=== PATIENT | male | born 1970 | race African-American/Black ===

== ENCOUNTER 2021-10-13 20:33 | Emergency (ER) | payer OTHER, BC, SELFPAY ==
[2021-10-13] VITALS (26 sets, daily range): BP systolic 136–197; BP diastolic 88–125; PULSE 73–105; RESP 13–20; TEMP 36.1–36.9; O2SAT 94–98
--- NOTE | ~2021-10-13 | XR_ITS ---
EXAMINATION: XR chest 2V DATE: 10/13/2021 21:22 INDICATION: Shortness of breath and hypertension. TECHNIQUE: PA and lateral views of the chest were obtained. COMPARISON: None FINDINGS: The lungs are clear with no focal airspace opacities, pulmonary edema, pleural effusion or pneumothor ax. Mild enlargement of the cardiac silhouette although this may be exaggerated by a left paracardial fat pad. Visualized bones and soft tissues are unremarkable. IMPRESSION: 1. No acute cardiopulmonary disease. 2. Mildly enlarged cardiac silhouette. Reviewed, dictated and finalized at location A. PICKER
--- NOTE | 2021-10-13 20:48 | ECG_ITS ---
Measurements Intervals [place] Rate: 100 P: 40 [place]: 125 QRS: 13 QRSD: 96 T: 31 QT: 326 QTc: 421 Interpretive Statements SINUS TACHYCARDIA RSR' IN V1 OR V2, CONSIDER RIGHT VENTRICULAR HYPERTROPHY OR RIGHT VCD BORDERLINE T WAVE ABNORMALITY- INFERIOR LEADS BORDERLINE ECG Electronically Signed On 10-14-2021 6:24:01 [employer] by Giuseppe Vasquez D.O.
--- NOTE | 2021-10-13 21:41 | ED.GENADULT ---
HPI - General Adult General Chief complaint: Shortness of Breath/Dyspnea Stated complaint: sob Time Seen by Provider: 10/13/21 21:02 Source: patient History of Present Illness HPI narrative: Patient presents with hot flashes. Patient reports he had intermittent issues for the past 6 years he has seen his primary care doctor who is running past 2 up evaluate his symptoms. Tonight he was sitting on the couch approximately 20 months prior to arrival had sudden onset of feeling hot and anxious and needing to move around. Reports when he lays down he feels like he is going to pass out so he needs to get up and move around. Reports cold weather helps his symptoms. These episodes last anywhere from 1 to 2 hours and resolved with cold temperature. He denies past medical history denies any major changes and weight. He reports his symptoms seem to come on randomly is not able to identify any clear triggering events. Sometimes his symptoms are associated with nausea chest pain and shortness of breath. Denies recent fevers, cough, congestion, diarrhea, changes in p.o. intake. Related Data Allergies Allergy/AdvReac Type Severity Reaction Status Date / Time No Known Allergies Allergy Verified 10/13/21 20:57 Review of Systems Review of Systems: CONSTITUTIONAL: Reports feeling hot EYES: Denies visual changes, redness, or discharge. ENT: Denies rhinorrhea, congestion, sore throat, or otalgia. CARDIOVASCULAR: Denies palpitations, or edema. RESPIRATORY: Denies cough or GASTROINTESTINAL: Denies abdominal pain, vomiting, or diarrhea. GENITOURINARY: Denies dysuria or hematuria. SKIN: Denies rash or itching. MUSCULOSKELETAL: Denies back pain, joint pain, or myalgia. NEUROLOGIC: Denies headache, numbness, dizziness, or focal weakness. PSYCHIATRIC: Denies anxiety or depression. All systems reviewed & are unremarkable except as noted in HPI and below PMFSH Past Medical History Medical History (Updated 10/13/21 @ 23:17 by Demarco Portillo MD) Patient denies significant medical history Social History Social History (Updated 10/13/21 @ 21:44 by Demarco Portillo MD) Smoking status: Never smoker Substance use: never Exam Narrative: GENERAL: Well-appearing, well-nourished, and in no acute distress. HEAD: Normocephalic, atraumatic. EYES: PERRLA and EOMI. ENT: Nares clear, no rhinorrhea or epistaxis. Mucous membranes moist. NECK: Supple. No masses. No JVD CHEST: Clear to auscultation. No respiratory distress. No wheezes rales or rhonchi HEART: Regular rate and rhythm. No murmur heard. Normal peripheral pulses. ABDOMEN: Soft, nontender, nondistended, normal active bowel sounds. EXTREMITIES: Normal range of motion. No edema. SKIN: Warm, dry, no rash. NEURO: No focal deficits. Alert and oriented x3. PSYCH: Normal mood and affect. Course Reevaluation(s) Reevaluation #1: Patient is resting comfortably reports large improvement in symptoms. Results and plan reviewed with patient. Patient comfortable outpatient plan. Date: 10/13/21 Time: 23:15 Vital Signs Vital signs: Vital Signs Temperature 36.1 C L 10/13/21 20:35 Pulse Rate 99 10/13/21 20:35 Respiratory Rate 20 10/13/21 20:35 Blood Pressure 178/106 H 10/13/21 20:35 Pulse Oximetry 98 10/13/21 20:35 Temperature 36.9 C 10/13/21 20:50 Pulse Rate 79 10/13/21 23:24 Respiratory Rate 17 10/13/21 23:24 Blood Pressure 140/93 H 10/13/21 23:24 Pulse Oximetry 96 10/13/21 23:24 Medical Decision Making [facility] Narrative Medical decision making narrative: H&P as above, vs with hypertension and mild tachycardia, pt looks clinically well, exam reassuring, labs clinically unremarkable, img clinically unremarkable, additional labs/img considered, symptomatic relief available as needed, on reevaluation pt continues to looks clinically well. Symptoms remain of unclear etiology may represent akathisia reaction however patient had no triggering event versus anxiety reac
[2021-10-13] MEDS: diphenhydrAMINE HCl INJ 50 MG/ML VIAL 25 MG IV PUSH (21:46)
--- NOTE | 2021-10-13 21:46 | PC.NURSE ---
Spoke with Dr Portillo. OK to cancel fluids due to high BP and restlessness at this time.
[2021-10-13 21:49] LABS: Basophils Percent Auto 0.5 % (0.2-1.2); Eosinophils Absolute Auto 0.1 K/mm3 (0-0.3); Eosinophils Percent Auto 0.9 % (0-4.4); Hematocrit 42.7 % (42.0-52.0); Hemoglobin 14.1 g/dL (14.0-18.0); Immature Granulocyte Absolute 0.02 K/mm3 (0.00-0.031); Immature Granulocyte Percent A 0.2 % (0-0.5); Lymphocytes Absolute Auto 2.93 K/mm3 (0.9-3.2); Lymphocytes Percent Auto 36.1 % (18.3-44.2); Mean Corpuscular Hemoglobin 30.5 pg (26-34); Mean Corpuscular Volume 92.4 fl (80-100); Mean Platelet Volume 9.8 fl (7.4-10.4); Monocytes Absolute Auto 0.7 K/mm3 (0.1-0.6); Monocytes Percent Auto 8.1 % (2.6-8.5); Neutrophils Absolute Auto 4.4 K/mm3 (1.3-6.7); Neutrophils Percent Auto 54.2 % (45.5-73.1); Platelet Count Result 329 k/mm3 (150-375); Red Blood Count 4.62 M/mm3 (4.6-6.20); Red Cell Distribution Width 13.5 % (11.5-14.5); White Blood Count 8.1 K/mm3 (4.5-10.0)
[2021-10-13 22:00] LABS: Alanine Aminotransferase 42 U/L (4-50); Albumin Level 4.3 g/dL (3.5-5.1); Alkaline Phosphatase 76 U/L (38-126); Anion Gap 6 mmol/L (8-16); Aspartate Amino Transferase 41 U/L (17-59); Bilirubin,Total 0.6 mg/dL (0.2-1.3); Blood Urea Nitrogen 17 mg/dL (9-20); Calcium 9.4 mg/dL (8.4-10.2); Carbon Dioxide 28 mmol/L (22-30); Chloride 104 mmol/L (98-107); Estimated CRCL calculation 77 ml/min; Estimated Glomerular Filt Rate > 60; Glucose 127 mg/dL (65-110); Magnesium 1.8 mg/dL (1.6-2.3); Potassium 4.3 mmol/L (3.4-5.0); Sodium 138 mmol/L (137-145)
[2021-10-13 22:01] LABS: D Dimer 0.41 ug/mL (<0.48)
[2021-10-13 22:12] LABS: Amphetamine Screen Urine Negative (Negative); Barbiturate Screen Urine Negative (Negative); Benzodiazepines Screen Urine Negative (Negative); Cannabinoid Screen Urine Negative (Negative); Cocaine Screen Urine Negative (Negative); Methadone Screen Urine Negative (Negative); Opiate Screen Urine Positive (Negative); Phencyclidine Screen Urine Negative (Negative)
[2021-10-13 23:10] LABS: Add Urine Microscopic? YES; Appearance Urine Clear (Clear); Bilirubin Urine Negative (Negative); Blood Urine Negative (Negative); Color Urine Yellow (Yellow); Glucose Urine UA Negative (Negative); Ketones Urine Negative (Negative); Leukocyte Esterase Ur Negative LEU/UL (Negative); Mucus Urine Rare /lpf; Nitrate Urine Negative (Negative); Protein Urine 1+ mg/dL (Negative); RBC Urine 0-2 /hpf (0-2); Specific Grav Ur 1.026 (1.001-1.035); Squamous Epithelial Cell Urine Rare /hpf (Few); Urobilinogen Urine Negative mg/dL (<2.0); WBC Urine 0-3 /hpf
== END 2021-10-13 23:24 | disposition home or self-care (01) ==
PROVIDERS: Emergency Provider Emergency Medicine; PCP Emergency Medicine
DX: R23.2 Flushing (principal); R00.2 Palpitations; I10 Essential (primary) hypertension; R00.0 Tachycardia, unspecified; R94.31 Abnormal electrocardiogram [ECG] [EKG]
CPT/HCPCS: 36415; 71046; 80053; 80307; 81001; 83735; 84443; 85025; 85380; 93005; 96374; 99284; J1200

== ENCOUNTER 2021-10-15 02:45 | Emergency (ER) | payer BC, SELFPAY ==
[2021-10-15 02:46] VITALS: BP 161/98; PULSE 89; RESP 18; TEMP 36.1; O2SAT 99
--- NOTE | 2021-10-15 03:09 | ECG_ITS ---
Measurements Intervals [place] Rate: 77 P: 37 MS: 137 QRS: 13 QRSD: 94 T: 36 QT: 365 QTc: 414 Interpretive Statements SINUS RHYTHM RSR' IN V1 OR V2, CONSIDER RIGHT VENTRICULAR HYPERTROPHY OR RIGHT VCD LEFT VENTRICULAR HYPERTROPHY BORDERLINE T WAVE ABNORMALITY- ANTERIOR LEADS BORDERLINE ECG Electronically Signed On 10-15-2021 8:00:57 [employer] by Giuseppe Vasquez D.O.
--- NOTE | 2021-10-15 03:14 | ED.GENADULT ---
HPI - General Adult General Chief complaint: Unspecified Stated complaint: readings of high blood pressure Time Seen by Provider: 10/15/21 02:59 Source: patient History of Present Illness HPI narrative: Patient was seen approximately 24 hours ago for similar symptoms. Reports she was getting ready for bed tonight and felt like his blood pressure was high and he is feeling warm he saw his blood pressure is elevated so he came to the ER for evaluation. Reports some head pressure but denies headache denies any chest pain or shortness of breath denies any nausea vomiting or diarrhea. Reports after his last ER visit he left a message with his primary care doctor but is not heard back. Patient denies any urinary symptoms, lightheadedness, dizziness, focal numbness or weakness. Related Data Home Medications Medication Instructions Recorded Confirmed hydrocodone-acetaminophen 10/15/21 Allergies Allergy/AdvReac Type Severity Reaction Status Date / Time No Known Allergies Allergy Verified 10/15/21 02:51 Review of Systems Review of Systems: CONSTITUTIONAL: Denies fever, chills, or sweats. EYES: Denies visual changes, redness, or discharge. ENT: Denies rhinorrhea, congestion, sore throat, or otalgia. CARDIOVASCULAR: Denies chest pain, palpitations, or edema. RESPIRATORY: Denies cough or dyspnea. GASTROINTESTINAL: Denies abdominal pain, nausea, vomiting, or diarrhea. GENITOURINARY: Denies dysuria or hematuria. SKIN: Denies rash or itching. MUSCULOSKELETAL: Denies back pain, joint pain, or myalgia. NEUROLOGIC: Denies headache, numbness, dizziness, or weakness. PSYCHIATRIC: Denies anxiety or depression. All systems reviewed & are unremarkable except as noted in HPI and below PMFSH Past Medical History Medical History Patient denies significant medical history Social History Social History Smoking status: Never smoker Substance use: never Exam Narrative: GENERAL: Well-appearing, well-nourished, and in no acute distress. HEAD: Normocephalic, atraumatic. EYES: PERRLA and EOMI. ENT: Nares clear, no rhinorrhea or epistaxis. Mucous membranes moist. NECK: Supple. No masses. No JVD CHEST: Clear to auscultation. No respiratory distress. No wheezes rales or rhonchi HEART: Regular rate and rhythm. No murmur heard. Normal peripheral pulses. ABDOMEN: Soft, nontender, nondistended, normal active bowel sounds. EXTREMITIES: Normal range of motion. No edema. SKIN: Warm, dry, no rash. NEURO: No focal deficits. Alert and oriented x3. PSYCH: Normal mood and affect. Course Reevaluation(s) Reevaluation #1: Patient is resting comfortably results and plan reviewed with patient. Patient is comfortable with outpatient plan. Date: 10/15/21 Time: 05:10 Vital Signs Vital signs: Vital Signs Temperature 36.1 C L 10/15/21 02:46 Pulse Rate 89 10/15/21 02:46 Respiratory Rate 18 10/15/21 02:46 Blood Pressure 161/98 H 10/15/21 02:46 Pulse Oximetry 99 10/15/21 02:46 Temperature 36.1 C L 10/15/21 02:46 Pulse Rate 86 10/15/21 05:28 Respiratory Rate 18 10/15/21 05:28 Blood Pressure 143/98 H 10/15/21 05:28 Pulse Oximetry 96 10/15/21 05:28 Medical Decision Making [facility] Narrative Medical decision making narrative: H&P as above, vs hypertension resolved without interventions, pt looks clinically well, exam reassuring, labs without acute process, EKG clinically unremarkable, additional labs/img considered, symptomatic relief available as needed, on reevaluation pt continues to looks clinically well. Symptoms remain of unclear etiology may be anxiety related versus hormonal. Patient did keep blood pressure log and is consistently systolics are greater than 150 for the past 24 hours patient may have undiagnosed essential hypertension, dns ACS, hypertensive emergency. plan to tx/monitor as op w/ pcm f/u findin
[2021-10-15 03:40] VITALS: BP 132/83
[2021-10-15 03:49] LABS: Basophils Percent Auto 0.4 % (0.2-1.2); Eosinophils Percent Auto 0.4 % (0-4.4); Hematocrit 41.2 % (42.0-52.0); Hemoglobin 14.1 g/dL (14.0-18.0); Immature Granulocyte Absolute 0.02 K/mm3 (0.00-0.031); Immature Granulocyte Percent A 0.3 % (0-0.5); Lymphocytes Absolute Auto 2.26 K/mm3 (0.9-3.2); Lymphocytes Percent Auto 29.2 % (18.3-44.2); Mean Corpuscular HGB Conc 34.2 g/dl (32-36); Mean Corpuscular Hemoglobin 30.6 pg (26-34); Mean Corpuscular Volume 89.4 fl (80-100); Mean Platelet Volume 9.7 fl (7.4-10.4); Monocytes Absolute Auto 0.6 K/mm3 (0.1-0.6); Monocytes Percent Auto 7.6 % (2.6-8.5); Neutrophils Absolute Auto 4.8 K/mm3 (1.3-6.7); Neutrophils Percent Auto 62.1 % (45.5-73.1); Platelet Count Result 331 k/mm3 (150-375); Red Blood Count 4.61 M/mm3 (4.6-6.20); Red Cell Distribution Width 12.9 % (11.5-14.5); White Blood Count 7.7 K/mm3 (4.5-10.0)
[2021-10-15 03:52] LABS: Add Urine Microscopic? NO; Appearance Urine Clear (Clear); Bilirubin Urine Negative (Negative); Blood Urine Negative (Negative); Color Urine Colorless (Yellow); Glucose Urine UA Negative (Negative); Ketones Urine Negative (Negative); Leukocyte Esterase Ur Negative LEU/UL (Negative); Nitrate Urine Negative (Negative); Protein Urine Negative (Negative); Urobilinogen Urine Negative mg/dL (<2.0)
[2021-10-15 04:01] LABS: Alanine Aminotransferase 43 U/L (4-50); Albumin Level 4.5 g/dL (3.5-5.1); Alkaline Phosphatase 86 U/L (38-126); Anion Gap 9 mmol/L (8-16); Aspartate Amino Transferase 35 U/L (17-59); Bilirubin,Total 0.6 mg/dL (0.2-1.3); Blood Urea Nitrogen 17 mg/dL (9-20); Calcium 9.5 mg/dL (8.4-10.2); Carbon Dioxide 27 mmol/L (22-30); Chloride 99 mmol/L (98-107); Estimated CRCL calculation 93 ml/min; Estimated Glomerular Filt Rate > 60; Glucose 101 mg/dL (65-110); Potassium 3.7 mmol/L (3.4-5.0); Sodium 135 mmol/L (137-145)
[2021-10-15 04:02] LABS: Specific Grav Ur 1.002 (1.001-1.035)
[2021-10-15 05:28] VITALS: BP 143/98; PULSE 86; RESP 18; O2SAT 96
== END 2021-10-15 05:32 | disposition home or self-care (01) ==
PROVIDERS: Emergency Provider Emergency Medicine; PCP Emergency Medicine
DX: I10 Essential (primary) hypertension (principal); R94.31 Abnormal electrocardiogram [ECG] [EKG]; I51.7 Cardiomegaly
CPT/HCPCS: 36415; 80053; 81003; 85025; 93005; 99283

== ENCOUNTER 2021-10-22 00:08 | Emergency (ER) | payer OTHER, BC, SELFPAY ==
--- NOTE | ~2021-10-22 | CT_ITS ---
EXAMINATION: CT brain wo con INDICATION: Blurred vision COMPARISON: None TECHNIQUE: Standard unenhanced head CT. The dose-length product (DLP) was 605.33 mGy-cm. The mA was a djusted according to patient size. Iterative reconstruction technique was employed. FINDINGS: There is no intracranial hemorrhage, acute infarction, or abnormal mass lesion. The ventric les are normal. There is no abnormal mass effect or midline shift. The wilson-white matter differentiat ion is normal. The basal cisterns are patent. The orbits are normal. The paranasal sinuses, mastoids and calvarium are normal. IMPRESSION: 1. No acute intracranial abnormality. Reviewed, dictated and finalized at location A. [employer]
[2021-10-22 00:09] VITALS: BP 143/94; PULSE 81; RESP 18; TEMP 36.6; O2SAT 97
[2021-10-22] MEDS: LORazepam (*CRX) 1 MG TABLET PO (01:03)
--- NOTE | 2021-10-22 01:05 | ED.ANXIETY ---
HPI - Anxiety General Chief Complaint: Anxiety Stated Complaint: Unable to sleep for few days, anxious Time Seen by Provider: 10/22/21 00:18 Source: patient and RN notes reviewed Mode of arrival: ambulatory Limitations: no limitations History of Present Illness HPI narrative: This is a 51 year old male who presents for evaluation of anxiety. Patient states he had surgery on his finger 3-4 weeks ago. He has been extremely anxious of the healing of his finger. He was started on hydrocodone, naproxen and Keflex after his surgery. He stopped taking his hydrocodone 1 week ago and he stopped taking Keflex 10 days ago. He has been seen in ER 2 prior times this month for anxiety and elevated blood pressure. Patient states he is having difficulty sleeping at night. He is also having episodes in which he feels hot and anxious. He also is complaining about racing thoughts and intermittent blurred vision. He denies chest pain or shortness of breath. He denies headache or focal weakness. He states he is having trouble walking and that he feels like he has to be cautious. He was concerned about his blood pressures so he was started on lisinopril. He stopped taking the lisinopril because he developed a cough. He is concern that he took melatonin but he is not asleep. Related Data Home Medications Medication Instructions Recorded Confirmed hydrocodone-acetaminophen 10/15/21 Allergies Allergy/AdvReac Type Severity Reaction Status Date / Time cephalexin AdvReac Diarrhea Verified 10/19/21 13:37 Review of Systems Review of Systems: All systems reviewed & are unremarkable except as noted in HPI and below PMFSH Past Medical History Medical History Patient denies significant medical history Social History Social History Smoking status: Never smoker Substance use: never Exam Narrative: GENERAL: Well-appearing, well-nourished, and in no acute distress. HEAD: Normocephalic, atraumatic EYES: PERRLA and EOMI, conjunctiva clear without discharge EARS: TM's clear bilaterally without erythema or dullness NOSE: Nares clear, no rhinorrhea or epistaxis THROAT:Mucous membranes moist, Oropharynx normal without erythema, exudate, peritonsillar swelling or fluctuance NECK: Supple, without lymphadenopathy or mass RESPIRATORY: No respiratory distress, Airway patent, Respirations non-labored, Clear to auscultation without rales, rhonchi or wheeze HEART: Regular rate and rhythm. No murmur heard. Normal peripheral pulses. ABDOMEN: Soft, nontender, nondistended, normal active bowel sounds. No masses. No rebound or guarding, No organomegaly. EXTREMITIES: No edema, normal strength with full range of motion. SKIN: Warm, dry, normal color without rash NEURO: Alert and oriented x3. CN 2-12 grossly intact. No focal deficits. PSYCH: Normal mood and affect. Neuro: General: patient oriented x3, gait normal and no meningeal signs Cranial nerves: Yes CN's II-XII intact bilaterally Speech: normal speech Gait exam (Neuro): Normal gait present Motor exam (neuro): 5/5 motor strength present throughout Sensory Exam: normal sensation Coordination: [id number] test normal Course Reevaluation(s) Reevaluation #1: I sat down and discussed with patient that I have reviewed his past ED visits over past 2 weeks. He has unremarkable labs both visits. His electrolytes, TSH, d dimer, cbc were all unremarkable.Patient was agreeable to CT Brain for evaluation of stroke or mass given stating he was having difficulty walking and blurred vision. CT is unremarkable. Patient is likely suffering panic attack/anxiety or possible withdrawal from his pain medication. He has not taken pain medication in 7 days. Date: 10/22/21 Time: 02:23 Vital Signs Vital signs: Vital Signs Temperature 97.9 F 10/22/21 00:09 Pulse Rate 81 10/22/21 00:
[2021-10-22 02:35] VITALS: PULSE 70; RESP 16; O2SAT 100
== END 2021-10-22 02:36 | disposition home or self-care (01) ==
PROVIDERS: Emergency Provider General Practice; PCP Emergency Medicine
DX: F41.9 Anxiety disorder, unspecified (principal); G47.00 Insomnia, unspecified
CPT/HCPCS: 70450; 99284; A9270

== ENCOUNTER 2021-11-14 12:52 | Outpatient (CLI) | payer OTHER, BC, SELFPAY ==
--- NOTE | 2021-11-14 | ECHO_ITS ---
Patient Info Name: Sindy Ortiz Age: 51 years : 1970 Gender: Male Ht: 68 in Wt: 205 lbs BSA: 2.14 m2 HR: 108 bpm BP: 177 / 109 mmHg Heart Rhythm: Sinus Rhythm Technical Quality: Fair Exam Date: 11/14/2021 2:07 PM Exam Location: [facility] Patient Status: Outpatient Admit Date: 11/14/2021 Staff Ordering Physician: Nuno Cline MD [employer] Teacher: Shanae Alvarez RDCS Attending Provider: Nuno Cline MD Referring Physician: Son OWEN; Exam Type: CA echo doppler color flow Study Info Indications I51.7 - Cardiomegaly Complete two-dimensional, color flow and Doppler transthoracic echocardiogram is performed. Summary 1. Complete two-dimensional, color flow and Doppler transthoracic echocardiogram is performed. 2. There is moderate concentric increased left ventricular wall thickness. 3. Left ventricular systolic function is hyperdynamic, estimated at 65-70%. 4. There is mild aortic valve sclerosis. 5. No evidence of aortic stenosis. Left Ventricle Left ventricular chamber dimension is normal. Left ventricular systolic function is hyperdynamic, estimated at 65-70%. There is moderate concentric increased left ventricular wall thickness. The left ventricular diastolic function is grade I diastolic dysfunction. Right Ventricle Right ventricular chamber dimension is normal. Left Atria Left atrial chamber dimension is normal. Right Atria Right atrial chamber dimension is normal. Aortic Valve The aortic valve is trileaflet. There is mild aortic valve sclerosis. No evidence of aortic stenosis. Pulmonic Valve The pulmonic valve is normal. Mitral Valve The mitral valve has normal leaflets. Tricuspid Valve The tricuspid valve leaflets are normal. Pericardium/Pleural The pericardium appears normal. Aorta The aortic root size at the sinus of Valsalva is normal. Left Ventricular Outflow Tract Name Value Normal LVOT 2D LVOT Diameter 2.0 cm LVOT Doppler LVOT Peak Gradient 4 mmHg LVOT Mean Gradient 3 mmHg LVOT VTI 18 cm LVOT VTI/AV VTI Ratio 0.9 LVOT Stroke Volume 60 ml Pulmonic Valve Name Value Normal RVOT Doppler RVOT Peak Gradient 2 mmHg PV Doppler PV Peak Gradient 4 mmHg Mitral Valve Name Value Normal MV Doppler MV Decel [place] 233 cm/s2 MV PHT 59 ms
== END 2021-11-14 12:53 | disposition home or self-care (01) ==
LOC: ANHCARD 12:54
PROVIDERS: PCP Emergency Medicine; Visit Provider Emergency Medicine
DX: I51.7 Cardiomegaly (principal); I35.8 Other nonrheumatic aortic valve disorders
CPT/HCPCS: 93306

== ENCOUNTER 2022-02-13 02:00 | Day surgery (SDC) | payer BC, SELFPAY ==
[2022-02-01 12:29] VITALS: BMI 31.9
--- NOTE | 2022-02-11 12:58 | P.PNAN_ITS ---
Anes - Initial Pre Proc Eval Procedure: Operation Date: 02/13/22 13:30 Proposed Procedures p Screening Colonoscopy - Hardeep Bradley MD Date/Time: 02/11/22 12:58 Surgeon: Hardeep Bradley MD Pre Op Diagnosis: neoplasm screening Patient Data Age: 51 Gender: M Height: 1.73 m Weight: 95.3 kg Allergies Allergy/AdvReac Type Severity Reaction Status Date / Time cephalexin AdvReac Anxiety Verified 02/13/22 11:42 Home Medications Medication Instructions Recorded Confirmed Type No Home Medications 02/13/22 02/13/22 History Patient hx anesthesia problems: none Family hx anesthesia problems: none Results Review: All pre-operative results and documents have been reviewed as part of the pre-operative evaluation. [facility] Past Medical History Medical History (Updated 02/13/22 @ 12:34 by Hardeep rBadley MD) Colon cancer screening Patient denies significant medical history Social History Social History Smoking status: Never smoker Substance use: never Substance use type: does not use Living arrangements: with family Spiritual care concerns: No Anes - Eval Final PreProcedure Day of Procedure 02/11/22 12:58 Patient weight: obese Heart: regular rate and rhythm Lungs: clear to auscultation and normal air movement Airway: Mallampati scale class II Neurological: alert and oriented Last oral intake: >/= 8 hours ASA classification: II Emergent: no Anesthetic plan: proceed Anesthesia type and monitoring: general GIVS and standard monitoring Results Review: All pre-operative results and documents have been reviewed as part of the pre-operative evaluation. Informed Consent: The patient's anesthetic plan and its attendant risks and benefits were discussed with the patient/family/POA. Questions were solicited and answers provided to the satisfaction of the patient/family/POA.
[2022-02-13 11:42] VITALS: BP 153/95; PULSE 103; RESP 20; TEMP 36.2; O2SAT 98; BMI 33.0
[2022-02-13] MEDS: LACTATED RINGERS 1,000 ML 150 ML IV CONT (12:00)
--- NOTE | 2022-02-13 12:34 | PM.HPGS ---
History of Present Illness History of Present Illness Consent: Risks, benefits, and alternatives have been discussed and questions answered. Patient agrees to proceed with procedure. Chief complaint: neoplasm screening Narrative: Sindy Ortiz is a 51 year old male here for first screening colonoscopy Review of Systems Constitutional: Constitutional: Denies headache(s) and Denies weakness Eyes: Eyes: Denies blurry vision ENT: Reports Normal hearing present, Denies headache(s) and Denies neck pain Cardiovascular: Cardiovascular: Denies chest pain and Denies dyspnea Respiratory: Respiratory: Denies dyspnea Gastrointestinal: Gastrointestinal: Reports no additional gastrointestinal complaints Genitourinary: Genitourinary: Denies dysuria Musculoskeletal: Musculoskeletal: Denies neck pain Integumentary/Breasts: Skin/Breast: Denies dry skin Neurologic: Reports Normal hearing present, Denies headache(s) and Denies weakness Psychiatric: Psychiatric: Denies anxiety Endocrine: Endocrine: Denies change in body appearance Hematologic/Lymphatic: Hematologic/Lymphatic: Denies easy bleeding Allergic/Immunologic: Allergic/Immunologic: Denies urticaria PMFSH Past Medical History Medical History (Updated 02/13/22 @ 12:34 by Hardeep Bradley MD) Colon cancer screening Patient denies significant medical history Social History Social History Smoking status: Never smoker Substance use: never Substance use type: does not use Living arrangements: with family Spiritual care concerns: No Meds Home Medications and Allergies Home Medications Medication Instructions Recorded Confirmed Type No Home Medications 02/13/22 02/13/22 History Allergies Allergy/AdvReac Type Severity Reaction Status Date / Time cephalexin AdvReac Anxiety Verified 02/13/22 11:42 Vital Signs Vital Signs - 24 hr 02/13/22 11:42 Temperature 97.1 F L Pulse Rate 103 H Respiratory Rate 20 Blood Pressure 153/95 H Pulse Oximetry 98 Exam Const: General: comfortable and no acute distress HENMT: General nose exam: Normal nares present Eyes: General: appearance normal, both eyes and all related structures Neck: Neck: no JVD Resp: Auscultation: clear to auscultation bilaterally Cardio: Rate: regular rate Rhythm: regular rhythm GI: Inspection: non-distended GI Palp: Yes Soft to palpation Skin: General skin exam: normal color Neuro: General: gait normal Speech: normal speech Extrem: General: normal to inspection Psych: Mental Status: mental status grossly normal Assessment and Plan Assessment and plan (1) Colon cancer screening: Code(s): Z12.11 - Encounter for screening for malignant neoplasm of colon Status: Acute Assessment and Plan: colonoscopy
[2022-02-13 12:55] VITALS: BP 106/76; PULSE 85; RESP 18; O2SAT 98
[2022-02-13 13:05] VITALS: BP 117/81; PULSE 77; RESP 17; O2SAT 98
[2022-02-13 13:15] VITALS: BP 117/81; PULSE 73; RESP 16; O2SAT 98
== END 2022-02-13 13:39 | disposition home or self-care (01) ==
PROVIDERS: PCP Emergency Medicine; Visit Provider Internal Medicine Gastroenterology
PROC: 0DJD8ZZ Inspection of Lower Intestinal Tract, Via Natural or Artificial Opening Endoscopic (ICD-10-PCS; CPT 45378; principal; 2022-02-13 13:30)
DX: Z12.11 Encounter for screening for malignant neoplasm of colon (principal); K64.8 Other hemorrhoids; E66.9 Obesity, unspecified; Z68.33 Body mass index [BMI] 33.0-33.9, adult
CPT/HCPCS: 45378; J2001; J2704; J7120

== ENCOUNTER 2022-02-26 17:49 | Emergency (ER) | payer BC, SELFPAY ==
--- NOTE | ~2022-02-26 | XR_ITS ---
EXAMINATION: XR knee RT min 4V DATE: 02/26/2022 18:37 INDICATION: Right knee pain and swelling. TECHNIQUE: 4 views of right knee were obtained. COMPARISON: None. FINDINGS: Bone alignment is normal. No fracture. There is mild tricompartmental osteoarthritis. There is prominent heterotopic ossification of quadriceps tendon. No knee joint effusion. IMPRESSION: 1. Mild right knee osteoarthritis. Reviewed, dictated and finalized at location E.
[2022-02-26 17:50] VITALS: BP 168/94; PULSE 105; RESP 18; TEMP 36.2; O2SAT 98
[2022-02-26 18:01] VITALS: BP 143/93; PULSE 100; RESP 20; TEMP 37.3; O2SAT 96
--- NOTE | 2022-02-26 18:06 | ED.LOWEXIN ---
HPI - Extremity Injury (Lower) General Chief Complaint: Extremity Injury, Lower Stated Complaint: right knee injury Time Seen by Provider: 02/26/22 17:57 Source: patient Mode of arrival: wheelchair Limitations: no limitations History of Present Illness HPI Narrative: This is a 51 year old male that presents to the ER for right knee injury sustained today. Reports he was playing softball and his cleats got stuck in the ground and his knee twisted. He has had pain and swelling in the right knee since. Reports pain with weightbearing. Denies decreased ROM or numbness. Related Data Home Medications Medication Instructions Recorded Confirmed No Home Medications 02/13/22 02/13/22 Allergies Allergy/AdvReac Type Severity Reaction Status Date / Time cephalexin AdvReac Anxiety Verified 02/26/22 17:53 Review of Systems Review of Systems: CONSTITUTIONAL: Denies fever MUSCULOSKELETAL: Reports joint pain, and myalgia. NEUROLOGIC: Denies numbness All systems reviewed & are unremarkable except as noted in HPI and below PMFSH Past Medical History Medical History (Updated 02/26/22 @ 20:20 by Bita Mullen PA-C) Colon cancer screening Patient denies significant medical history Social History Social History Smoking status: Never smoker Substance use: never Substance use type: does not use Spiritual care concerns: No Exam Narrative: GENERAL: Well-appearing, well-nourished, and in no acute distress. HEAD: Normocephalic, atraumatic. EYES: EOMI. EXTREMITIES: Normal range of motion. Mild edema about the right knee anteriorly. Normal DP pulses. Normal sensation SKIN: Warm, dry, no rash. NEURO: No focal deficits. Alert and oriented x3. PSYCH: Normal mood and affect Course Vital Signs Vital signs: Vital Signs Temperature 97.2 F L 02/26/22 17:50 Pulse Rate 105 H 02/26/22 17:50 Respiratory Rate 18 02/26/22 17:50 Blood Pressure 168/94 H 02/26/22 17:50 Pulse Oximetry 98 02/26/22 17:50 Temperature 99.1 F 02/26/22 18:01 Pulse Rate 78 02/26/22 19:42 Respiratory Rate 18 02/26/22 19:42 Blood Pressure 140/82 02/26/22 19:42 Pulse Oximetry 98 02/26/22 19:42 Procedures Orthopedic Splinting/Casting Injury #1: Splinting/Casting Date: 02/26/22 Side: right Lower Extremity Injury Location: knee Lower Extremity Immobilizer: knee immobilizer Splint: prefabricated Pre-Formed: knee immobilizer Pre-Procedure Neuro Vascular Exam: normal Post-Procedure Neuro Vascular Exam: normal Other Orthopedic Equipment: crutches MDM - Extremity Injury (Lower) MDM Narrative Medical decision making narrative: Patient presents to the emergency department for right knee injury sustained today. Patient is neurovascularly intact. Right knee x-ray shows mild osteoarthritis. Patient placed in a knee immobilizer and given crutches. Instructed to follow-up with orthopedics. He was given warnings to return to the ER Imaging Data Radiologist's impression: ITS Impressions Knee X-Ray 02/26/22 18:44 IMPRESSION: 1. Mild right knee osteoarthritis. Critical Care Time Critical Care Time Critical Care Time: No Discharge Plan Discharge Clinical Impression: Acute internal derangement of knee Qualifiers: Laterality: right Qualified Code(s): M23.91 - Unspecified internal derangement of right knee Patient Disposition: Home, Self-Care Condition: Stable Instructions: Knee Sprain (ED) Additional Instructions: Return to the emergency department if you experience fever, redness and swelling of your leg, numbness, or any other symptoms that are concerning to you Wear knee immobilizer and use crutches. No weight on the affected leg. Ice and elevate extremity. Pain medication as needed and directed. Follow up with orthopedics for further care. Prescriptions: No Action No Home M
[2022-02-26] MEDS: IBUPROFEN 600 MG TABLET PO (18:15)
[2022-02-26 19:42] VITALS: BP 140/82; PULSE 78; RESP 18; O2SAT 98
== END 2022-02-26 20:31 | disposition home or self-care (01) ==
PROVIDERS: Emergency Provider Emergency Medicine; PCP Emergency Medicine
DX: M23.91 Unspecified internal derangement of right knee (principal); S89.91XA Unspecified injury of right lower leg, initial encounter; X50.9XXA Other and unspecified overexertion or strenuous movements or postures, initial encounter; Y93.64 Activity, baseball
CPT/HCPCS: 73564; 99283; A9270

== ENCOUNTER 2024-07-05 01:25 | Emergency (ER) | payer MEDICAID, SELFPAY ==
[2024-07-05 01:31] VITALS: BP 148/88; PULSE 75; RESP 17; TEMP 36.3; O2SAT 98
--- NOTE | 2024-07-05 01:54 | ED.RECABL ---
HPI - Recheck/Abnormal Lab/Rx General Chief Complaint: Recheck/Abnormal Lab/Rx Stated Complaint: High BP earlier, not now, med refill Time Seen by Provider: 07/05/24 01:38 History of Present Illness HPI narrative: Patient presents here for a medication refill, he is out of his blood pressure medication, he is also out of his anxiety medication denies any symptoms. Related Data Home Medications Medication Instructions Recorded Confirmed cholecalciferol (vitamin D3) 10 10 mcg PO DAILY 03/31/22 08/24/22 mcg (400 unit) capsule diphenhydramine HCl 25 mg capsule 25 mg PO QHS PRN 03/31/22 08/24/22 (Benadryl) ibuprofen 200 mg capsule 200 mg PO Q6H PRN 03/31/22 08/24/22 multivitamin 1 tablet PO DAILY 03/31/22 08/24/22 Allergies Allergy/AdvReac Type Severity Reaction Status Date / Time cephalexin AdvReac Anxiety Verified 07/05/24 01:33 Review of Systems Review of Systems: All systems reviewed & are unremarkable except as noted in HPI and below PMFSH Past Medical History Medical History Colon cancer screening Patient denies significant medical history Surgical History Surgical History History of hand surgery 2020, Dr. 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 EYES: EOMI, conjunctiva normal ENT: Hearing grossly intact LUNGS: Nonlabored breathing. HEART: [Regular rate and rhythm] ABD: [Soft], [nontender to palpation] EXT: Normal range of motion SKIN: [No rashes or lesions.] NEURO: [Alert and oriented x 3. No gross focal sensory or strength deficits.] PSYCH: Normal affect Course Vital Signs Vital signs: Vital Signs Temperature 97.3 F L 07/05/24 01:31 Pulse Rate 75 07/05/24 01:31 Respiratory Rate 17 07/05/24 01:31 Blood Pressure 148/88 H 07/05/24 01:31 Pulse Oximetry 98 07/05/24 01:31 Oxygen Delivery Room Air 07/05/24 01:31 Temperature 97.3 F L 07/05/24 01:31 Pulse Rate 75 07/05/24 01:31 Respiratory Rate 17 07/05/24 01:31 Blood Pressure 148/88 H 07/05/24 01:31 Pulse Oximetry 98 07/05/24 01:31 Oxygen Delivery Room Air 07/05/24 01:31 MDM - Recheck/Abnormal Lab/Rx MDM Narrative Medical decision making narrative: Patient presenting with no symptoms and here for medication refill, I did let him know that unfortunately since alprazolam is a controlled substance I cannot given to any doses of this but will given a few days supply until he can see his doctor, I did give him a refill on his blood pressure medication. Stable for discharge with return precautions Discharge Plan Discharge Clinical Impression: Encounter for medication refill Patient Disposition: Home, Self-Care Condition: Stable Instructions: Antibiotic Form, Medicine Refill (ED) Additional Instructions: Please follow up with your doctor; you can always return for any further issues. Prescriptions: New amlodipine 5 mg tablet 5 mg PO DAILY Qty: 30 0RF alprazolam 0.5 mg tablet 0.5 mg PO DAILY 7 Days Qty: 7 0RF No Action diphenhydramine HCl [Benadryl] 25 mg capsule 25 mg PO QHS PRN ibuprofen 200 mg capsule 200 mg PO Q6H PRN multivitamin Tablet
[2024-07-05 03:33] VITALS: BP 142/84; PULSE 79; RESP 16; O2SAT 98
== END 2024-07-05 03:34 | disposition home or self-care (01) ==
LOC: ANHED 02:06
PROVIDERS: Emergency Provider Emergency Medicine; PCP Emergency Medicine
DX: Z76.0 Encounter for issue of repeat prescription (principal); Z79.1 Long term (current) use of non-steroidal anti-inflammatories (NSAID)
CPT/HCPCS: 99281

== ENCOUNTER 2024-07-07 07:32 | Emergency (ER) | payer MEDICAID, SELFPAY ==
[2024-07-07 07:37] VITALS: BP 130/98; PULSE 88; RESP 15; TEMP 36.4; O2SAT 97
[2024-07-07 07:40] VITALS: RESP 14; O2SAT 97
--- NOTE | 2024-07-07 08:09 | ED.GENADULT ---
HPI - General Adult General Chief complaint: Unspecified Stated complaint: COVID test Time Seen by Provider: 07/07/24 07:59 History of Present Illness HPI narrative: Pt presents with a mild CAMPOS. Pt says his has covid and he wants to be tested. Pt denies other symptosm. Related Data Home Medications Medication Instructions Recorded Confirmed cholecalciferol (vitamin D3) 10 10 mcg PO DAILY 03/31/22 08/24/22 mcg (400 unit) capsule diphenhydramine HCl 25 mg capsule 25 mg PO QHS PRN 03/31/22 08/24/22 (Benadryl) ibuprofen 200 mg capsule 200 mg PO Q6H PRN 03/31/22 08/24/22 multivitamin 1 tablet PO DAILY 03/31/22 08/24/22 Allergies Allergy/AdvReac Type Severity Reaction Status Date / Time cephalexin AdvReac Anxiety Verified 07/07/24 07:37 Review of Systems Review of Systems: All systems reviewed & are unremarkable except as noted in HPI and below PMFSH Past Medical History Medical History Colon cancer screening Patient denies significant medical history Surgical History Surgical History History of hand surgery 2020, Dr. 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 Exam Const: General: cooperative, healthy appearing, comfortable and no acute distress Nutritional Appearance: average body habitus Orientation/consciousness: patient oriented x3 Limitations: no limitations HENMT: Head: normal to inspection Mouth: Yes Normal oral and palatal mucosa present Neck: Neck: normal visual inspection, full ROM, no lymphadenopathy and no meningeal signs Resp: Effort & Inspection: normal respiratory effort Auscultation: clear to auscultation bilaterally Cardio: Rate: regular rate Rhythm: regular rhythm GI: Inspection: normal to inspection GI Palp: No abdominal tenderness Percussion: Yes normal to percussion Auscultation: normal bowel sounds Back/Spine/Pelvis: Back: no CVA tenderness Skin: General skin exam: normal color Lesions: no lesions Rashes: no rashes Trauma: no lacerations or abrasions Neuro: General: patient oriented x3 Cranial nerves: Yes CN's II-XII intact bilaterally Cognition (Neuro): normal cognition Speech: normal speech Motor exam (neuro): 5/5 motor strength present throughout Sensory Exam: normal sensation Extrem: General: normal to inspection and full ROM Psych: Appearance: grossly normal Mental Status: mental status grossly normal Speech and movement: Normal speech and movement present Affect: normal affect Attitude: cooperative Thought process: Normal thought process present Thought content: Yes Normal thought content present Insight: Good insight present (Psych) Judgement: Good judgement present (Psych) Course Vital Signs Vital signs: Vital Signs Temperature 97.5 F L 07/07/24 07:37 Pulse Rate 88 07/07/24 07:37 Respiratory Rate 15 07/07/24 07:37 Blood Pressure 130/98 H 07/07/24 07:37 Pulse Oximetry 97 07/07/24 07:37 Oxygen Delivery Room Air 07/07/24 07:37 Temperature 97.5 F L 07/07/24 09:23 Pulse Rate 75 07/07/24 09:23 Respiratory Rate 15 07/07/24 09:23 Blood Pressure 136/93 H 07/07/24 09:23 Pulse Oximetry 97 07/07/24 09:23 Oxygen Delivery Room Air 07/07/24 07:37 Medical Decision Making [facility] Narrative Medical decision making narrative: Pt here with mild CAMPOS and covid exsposure in house. Will check for covid flu rs
[2024-07-07 08:42] LABS: Influenza A QL RT-PCR Negative (Negative); Influenza B QL RT-PCR Negative (Negative); RSV RNA, RT-PCR Negative (Negative); SARS-CoV-2 RNA PCR Negative (Negative)
[2024-07-07 09:23] VITALS: BP 136/93; PULSE 75; RESP 15; TEMP 36.4; O2SAT 97
== END 2024-07-07 09:24 | disposition home or self-care (01) ==
PROVIDERS: Emergency Provider Emergency Medicine; PCP Emergency Medicine
DX: R51.9 Headache, unspecified (principal); Z20.822 Contact with and (suspected) exposure to COVID-19; Z79.899 Other long term (current) drug therapy
CPT/HCPCS: 87637; 99283